=== PATIENT | male | born 1970 | race Caucasian/White ===

== ENCOUNTER 2018-05-16 12:09 | Emergency (ER) | payer OTHER ==
[2018-05-16] MEDS ORDERED: TDAP ADULT 0.5 ML INJ (BOOSTRIX) IM ONE (12:25)
--- NOTE | 2018-05-16 12:44 | EDPHY ---
H & P Stated Complaint: cut l forearm with tile Source: Patient Exam Limitations: No limitations - Personal History Current Tetanus Diphtheria and Acellular Pertussis (TDAP): No - Medical/Surgical History Hx Asthma: No Hx Chronic Respiratory Disease: No Hx Diabetes: No Hx Cardiac Disease: No Hx Renal Disease: No Hx Cirrhosis: No Hx Alcoholism: No Hx HIV/AIDS: No Hx Splenectomy or Spleen Trauma: No Other PMH: denies - Social History Smoking Status: Never smoked Time Seen by Provider: 05/16/18 12:24 HPI/ROS: HPI: This is a 48-year-old male who presents with Chief Complaint: Left forearm with tile at work Location: Left forearm Quality: Laceration by tile Duration: 1 hr prior to arrival Signs and Symptoms: + bleeding, no radiation, no numbness, no weakness, no tingling, no incontinence, no decreased range of motion, no swelling, + pain, no fever Timing: Acute Severity: [id number] Context: Patient is right-hand dominant, presents with changing the trash and being cut by a tile on his left forearm approximately 1 hr prior to arrival. Reports that the laceration is quite deep and it started to bleed quite a bit. He applied direct pressure and the bleeding continued. He is unsure of his last tetanus shot. Reports that he can see his muscles but denies any decreased range of motion, paresthesias, numbness, tingling. Modifying Factors: Direct pressure Comment: ROS: A comprehensive 10 system review of systems is otherwise negative aside from elements mentioned in the history of present illness. MEDICAL/SURGICAL/SOCIAL HISTORY: Medical history: Generally healthy. Does not take any regular medications. Surgical history: Denies Social history: Employed. Nonsmoker. CONSTITUTIONAL: Polite and cooperative middle-aged male, awake and alert, no obvious distress HEENT: Atraumatic and normocephalic. NECK: supple EXTREMITIES: 2/2 pulses, strength 5/5, left forearm shows deep, complex, 10 cm vertical incision on left volar aspect of forearm; no active bleeding. Wrist and elbow have full range of motion. DIP/PIP/MCP flexion/extension intact with good light touch sensation. no deformities, no clubbing, no cyanosis or edema. NEUROLOGICAL: no focal neuro deficits. GCS 15. Light touch sensation intact. SKIN: Warm and dry, no erythema. no rash. Good capillary refill. (Lea Rollins) Constitutional: Initial Vital Signs Temperature (C) 36.5 C 05/16/18 12:10 Heart Rate 84 05/16/18 12:10 Respiratory Rate 18 05/16/18 12:10 Blood Pressure 134/96 H 05/16/18 12:10 O2 Sat (%) 95 05/16/18 12:10 O2 Delivery Mode Room Air Allergies/Adverse Reactions: No Known Allergies Allergy (Unverified 05/16/18 12:10) Home Medications: Medication Instructions Recorded NK [No Known Home Meds] 05/16/18 Medical Decision Making Procedures: Procedure: Laceration repair. Verbal consent was obtained from the patient. The deep, complex, 10 cm, vertical laceration on the left forearm was anesthetized in the usual fashion using 12 mL of 1% lidocaine with epinephrine. The wound was irrigated, draped and explored to its base with a gloved finger. There were no deep structures involved. No tendon injury was identified. The wound was repaired with 3 layer closure; fascia repaired with 3-0 Vicryl. second layer repaired with horizontal buried 4-0 Vicryl. Subcutaneous repaired with #12, 3-0 Prolene in simple interrupted pattern . Good hemostasis was achieved and patient tolerated procedure well. The procedure was performed by myself. (Lea Rollins) ED Course/Re-evaluation: Vital signs reviewed and stable upon arrival. Tetanus booster given Local anesthesia provided; irrigated copiously with Tiago Three layer closure; Steri-Strips; Adaptic, 4x4s and then Coban Written and verbal wound care instructions provided Ortho referral for possibility of muscle versus nerve injury No signs of neurovascular compromise/tenting of skin/compartment syndrome/ extremities and joints examined above and below area of concern and are neurovascularly intact. This patient was seen under the supervision of my secondary supervising physician. I evaluated care for this patient independently. Discussed this patient with Dr. Barros. (Lea Rollins) Differential Diagnosis: Differential diagnosis includes but is not limited to tendon injury, ligament injury, nerve injury, muscle injury, laceration, foreign body. (Lea Rollins) - Data Points Medications Given: Discontinued Medications Diphtheria/Tetanus/Acell Pertussis (Boostrix) 0.5 ml IM .ONCE ONE Stop: 05/16/18 12:26 Last Admin: 05/16/18 12:28 Dose: 0.5 ml Departure - Departure Disposition: Home, Routine, Self-Care Clinical Impression: Laceration of left forearm with tendon involvement Qualifiers: Encounter type: initial encounter Qualified Code(s): S51.812A - Laceration without foreign body of left forearm, initial encounter Condition: Good Instructions: Care For Your Stitches (ED), Laceration (ED), Tendon Laceration ( ED) Additional Instructions: Keep the dressing dry and in place for 48 hours. After 48 hours, you may remove the dressing; wash the site daily with mild soap and water; then pat dry. Take Tylenol 650 mg every 4 hours and/or Ibuprofen 600 mg every 8 hours with food as needed for pain. Follow up with Orthopedics in 5-7 days at which time they will evaluate nerve versus tendon injury and recommend with you if conservative management versus surgery is indicated. Wound Care Follow-Up: Removal of sutures in [10-14] days. Suture removal is complimentary in uncomplicated cases. Infection or abnormal findings would require reevaluation by the MD. In that case, you may be billed. Follow-Up: Please follow-up as noted above. Follow-up sooner if your condition worsens or if you develop any new problems. Call as soon as possible for an appointment. Be clear when you call for an appointment that this is an Emergency Department follow-up. Contact the Emergency Department if you have trouble arranging follow-up care. Our referrals are not based on your insurance network. When time allows, contact your insurance carrier to verify the referral physician is in your plan. If not, get a referral for an in-telecommunications network engineer. Referrals: Ervin Rogers MD [Medical Doctor] - As per Instructions
[2018-05-16 13:42] VITALS: BP 137/81
== END 2018-05-16 13:52 | disposition home or self-care (01) ==
PROC: 0JQH3ZZ Repair Left Lower Arm Subcutaneous Tissue and Fascia, Percutaneous Approach (ICD-10-PCS; principal; 2018-05-16)
DX: S51.812A Laceration without foreign body of left forearm, initial encounter (principal); Z23 Encounter for immunization; W26.8XXA Contact with other sharp object(s), not elsewhere classified, initial encounter; Y99.0 Civilian activity done for income or pay